=== PATIENT | female | born 1950 | race Caucasian/White ===

== ENCOUNTER → 2016-06-17 | Outpatient (CLI) | payer OTHER ==
[~2016-06-17] MED LIST: ALBUTEROL SULFATE 0.083% NEB 2.5 MG/3 ML AMPUL NEB ONE
--- NOTE | 2016-06-19 09:38 | PULMONARY FUNCTION TEST ---
DATE OF SERVICE: 06/17/2016 THE VITAL CAPACITY IS NORMAL. THE EXPIRATORY FLOW RATES ARE SLIGHTLY DECREASED. THE FEV1/VC IS 54%, PREDICTED: 83% LUNG VOLUMES BY NITROGEN WASH OUT METHOD SHOW: TLC IS 117% OF PREDICTED FRC IS 121% OF PREDICTED RV IS 121% OF PREDICTED THE DLCO IS 10.8, 62% OF PREDICTED. THE RV/TLC RATIO IS 40% PREDICTED 39% AFTER BRONCHODILATOR, EXPIRATORY FLOW RATES SHOW NO SIGNIFICANT CHANGE. IMPRESSION: GOOD PATIENT EFFORT. SLIGHT OBSTRUCTIVE DEFECT. LUNG VOLUMES ARE SLIGHTLY INCREASED. DIFFUSING CAPACITY IS MODERATELY DECREASED. CC: TONIE ROJAS MD > KENNEDI
== END ==
LOC: RT 08:23
PROVIDERS: ATTEND Internal Medicine Pulmonary Disease
DX: J44.1 Chronic obstructive pulmonary disease with (acute) exacerbation (principal)
CPT/HCPCS: 94060; 94727; 94729

== ENCOUNTER → 2016-09-11 | Outpatient (CLI) | payer MEDICARE ==
--- NOTE | 2016-09-11 09:22 | WOMENS IMAGING REPORT ---
EXAM DESCRIPTION: BILAT SCREENING MAMMO W/CAD COMPLETED DATE/TIME: 09/11/2016 8:51 am REASON FOR STUDY: ROUTINE SCREENING; Z12.31 Z12.31 ENCNTR SCREEN MAMMOGRAM FOR MALIGNANT NEOPLASM O F AUSTEN COMPARISON: None. TECHNIQUE: Standard craniocaudal and mediolateral oblique views of each breast recorded using Innov[employer] l acquisition. LIMITATIONS: None. FINDINGS: Findings present which are benign by mammographic criteria. No suspicious masses, calcifi cations or architectural distortion. Pertinent benign findings: Postsurgical changes from bilateral breast reduction. Multiple bilateral skin calcifications and scattered benign-appearing breast parenchymal calcifications. Read with the assistance of CAD. .[facility] - R2 Cenova Version 1.3 .[facility] Imaging - R2 Cenova Version 1.3 .[facility] - R2 Cenova Version 2.4 .[facility] [place] - R2 Cenova Version 2.4 .[facility] - R2 Boiler Maker Version 9.2 Benign mammographic findings may include one or more of the following: Smooth masses, popcorn/rim/co arse calcifications, asymmetries, post-procedure changes, and lesions with long-standing stability. IMPRESSION: BENIGN MAMMOGRAPHIC FINDINGS. BIRADS 2 BREAST DENSITY: c. The breasts are heterogeneously dense, which may obscure small masses. BIRAD: 2 BENIGN FINDING(S) RECOMMENDATION: ROUTINE SCREENING Please consider bilateral screening tomosynthesis given heterogeneously dense tissue bilaterally COMMENT: The patient has been notified of the results by letter per SA requirements. Additional no tification policies are in place for contacting patient with suspicious or incomplete findings. Quality ID #[id number]: The [employer] recommends an annual screening mammogram for women aged 40 years or over. This facility utilizes a reminder system to ensure that all patients receive reminder letters, and/or direct phone calls for appointments. This includes reminders for routine scr eening mammograms, diagnostic mammograms, or other Breast Imaging Interventions when appropriate. Th is patient will be placed in the appropriate reminder system. The [employer] (ACR) has developed recommendations for screening MRI of the breast s in certain patient populations, to be used in conjunction with mammography. Breast MRI surveillanc e may be appropriate for women with more than 20% lifetime risk of developing breast cancer as deter mined by genetic testing, significant family history of the disease, or history of mantle radiation f or Hodgkins Disease. ACR Practice Guidelines 2008. TECHNICAL DOCUMENTATION: FINDING NUMBER: (1) ASSESSMENT: (1) JOB ID: [id number] [employer]- All Rights Reserved
== END ==
LOC: WI 08:32
PROVIDERS: ATTEND Family Medicine
DX: Z12.31 Encounter for screening mammogram for malignant neoplasm of breast (principal)
CPT/HCPCS: 77067; G0202

== ENCOUNTER → 2017-08-03 | Outpatient (CLI) | payer MEDICARE ==
--- NOTE | 2017-08-03 14:16 | RADIOLOGY REPORT (SQ) ---
EXAM DESCRIPTION: CT LUNG CANCER SCREENING COMPLETED DATE/TIME: 08/03/2017 10:45 am REASON FOR STUDY: PERSONAL HX OF NICOTINE DEPENDENCE (Z87.891) Z87.891 PERSONAL HISTORY OF NICOTINE DEPENDENCE Has the patient had a Chest CT scan within the past year? Was the patient offered tobacco cessation counseling? Was the patient engaged in shared decision making for this test? Does the patient have signs or symptoms of Lung Cancer? Is the patient a smoker? How many packs per year? How many years since quitting smoking? Patients age: COMPARISON: None. TECHNIQUE: Low Dose CT scan performed of the chest without intravenous contrast for purposes of scre ening for lung cancer. Images reviewed with lung, soft tissue and bone windows. Reconstructed coron al and sagittal MPR images reviewed. All images stored on PACS. All CT scanners at this facility use dose modulation, iterative reconstruction, and/or weight based d osing when appropriate to reduce radiation dose to as low as reasonably achievable (ALARA). [facility]: Dose Right [facility]: CareDose [facility]: Dose Right [facility]: Teradose 4D [facility]: Smart Mismi RADIATION DOSE: CT Rad equipment meets quality standard of care and radiation dose reduction techniq ues were employed. CTDIvol: 2.0 mGy. DLP: 77 mGy-cm. mGy. . LIMITATIONS: No technical limitations. FINDINGS: LUNG NODULES: Description: Ground-glass nodule in the middle lobe. Size: 10 mm REMAINING LUNGS AND PLEURA: No pleural effusions or calcifications. No pneumothorax. Bandlike s carring in the left lower lobe and middle lobe. HILAR AND MEDIASTINAL STRUCTURES: No identified masses. No abnormal nodes. HEART AND VASCULAR STRUCTURES: No aortic aneurysm. No pericardial effusion. No cardiac devices. CORONARY ARTERY CALCIFICATIONS: Mild to moderate calcifications. UPPER ABDOMEN, THYROID, BONES, OTHER SOFT TISSUES: No significant findings. IMPRESSION: PROBABLY BENIGN FINDINGS IN THE LUNGS. OTHER FINDINGS ABOVE. LUNGRADS: LUNGRADS: 3, PROBABLY BENIGN. PROBABLY BENIGN FINDING(S)- SHORT TERM FOLLOW UP SUGGESTED; INCLUDES NODULES WITH A LOW LIKELIHOOD OF BECOMING A CLINICALLY ACTIVE CANCER. MODIFIER: NONE. RECOMMENDATION: Followup LDCT in 6 months. COMMENT: CRITERIA: Solid nodule(s): ? 6 mm to < 8 mm at baseline OR new 4 mm to < 6 mm. Part solid nodule(s): ? 6 mm total diameter with solid component < 6 mm OR new < 6 mm total diameter . Non solid nodule(s) (GGN): ? [address] or new. TECHNICAL DOCUMENTATION: JOB ID: [id number] Quality ID # [id number]: Final reports with documentation of one or more dose reduction techniques (e.g., Au tomated exposure control, adjustment of the mA and/or kV according to patient size, use of iterative reconstruction technique) 2010 [facility] Reading location - IP/workstation name: [email or web address] [id number]
== END ==
LOC: RAD 10:12
PROVIDERS: ATTEND Internal Medicine Pulmonary Disease
DX: R91.1 Solitary pulmonary nodule (principal); J98.4 Other disorders of lung; Z87.891 Personal history of nicotine dependence
CPT/HCPCS: G0297

== ENCOUNTER → 2017-11-26 | Outpatient (CLI) | payer MEDICARE ==
--- NOTE | 2017-11-26 13:25 | RADIOLOGY REPORT (SQ) ---
EXAM DESCRIPTION: CT CHEST WITHOUT COMPLETED DATE/TIME: 11/26/2017 12:56 pm REASON FOR STUDY: SOLITARY PULMONARY NODULE R91.1 SOLITARY PULMONARY NODULE COMPARISON: 08/03/2017 TECHNIQUE: CT scan performed of the chest without intravenous contrast. Images reviewed with lung, soft tissue and bone windows. Reconstructed coronal and sagittal MPR images reviewed. All images st ored on PACS. All CT scanners at this facility use dose modulation, iterative reconstruction, and/or weight based d osing when appropriate to reduce radiation dose to as low as reasonably achievable (ALARA). [facility]: Dose Right [facility]: CareDose [facility]: Dose Right [facility]: Teradose 4D [facility]: Smart Plex RADIATION DOSE: CT Rad equipment meets quality standard of care and radiation dose reduction techniq ues were employed. CTDIvol: 4.8 mGy. DLP: 181 mGy-cm. mGy. LIMITATIONS: No technical limitations. FINDINGS: LUNGS AND PLEURA: There is a new 7.1 mm slightly spiculated nodule in the right lung apex. There is subsegmental atelectasis in the right upper lobe peripherally new from prior study. Mild emphysematous changes are again noted. There is a stable 9.5 mm sub solid nodule just anterior to th e major fissure in the right upper lobe. HILAR AND MEDIASTINAL STRUCTURES: No identified masses or abnormal nodes. No obvious aneurysm. HEART AND VASCULAR STRUCTURES: No aneurysm. No pericardial effusion. UPPER ABDOMEN: No significant findings. Limited exam. THYROID AND OTHER SOFT TISSUES: No masses. No adenopathy. BONES: No significant finding. HARDWARE: None in the chest. OTHER: No other significant findings. IMPRESSION: 1. Stable 9.4 mm sub solid nodule in the right upper lobe adjacent to the major fissure. 2. New 7.1 mm mildly spiculated nodule in the right lung apex. This will need follow up. 3. Subsegmental atelectasis in the periphery of the right upper lobe new from prior study. COMMENT: Fleischner Criteria for Ground Glass Nodules: >6mm ground glass single nodule: CT 6-12 mo, then CT every 2 yr until 5 yr TECHNICAL DOCUMENTATION: JOB ID: [id number] Quality ID # [id number]: Final reports with documentation of one or more dose reduction techniques (e.g., Au tomated exposure control, adjustment of the mA and/or kV according to patient size, use of iterative reconstruction technique) 2010 [employer]- All Rights Reserved Reading location - IP/workstation name: [email or web address]
== END ==
LOC: RAD 12:58
PROVIDERS: ATTEND Internal Medicine Pulmonary Disease
DX: R91.1 Solitary pulmonary nodule (principal)
CPT/HCPCS: 71250

== ENCOUNTER → 2018-03-30 | Outpatient (CLI) | payer MEDICARE ==
--- NOTE | 2018-03-30 09:31 | RADIOLOGY REPORT (SQ) ---
EXAM DESCRIPTION: CT CHEST WITHOUT COMPLETED DATE/TIME: 03/30/2018 9:11 am REASON FOR STUDY: SOLITARY PULMONARY NODULE R91.1 SOLITARY PULMONARY NODULE COMPARISON: 11/26/2017 TECHNIQUE: CT scan performed of the chest without intravenous contrast. Images reviewed with lung, soft tissue and bone windows. Reconstructed coronal and sagittal MPR images reviewed. All images st ored on PACS. All CT scanners at this facility use dose modulation, iterative reconstruction, and/or weight based d osing when appropriate to reduce radiation dose to as low as reasonably achievable (ALARA). [facility]: Dose Right [facility]: CareDose [facility]: Dose Right [facility]: Teradose 4D [facility]: Yarraa RADIATION DOSE: CT Rad equipment meets quality standard of care and radiation dose reduction techniq ues were employed. CTDIvol: 5.1 mGy. DLP: 195 mGy-cm. mGy. LIMITATIONS: No technical limitations. FINDINGS: LUNGS AND PLEURA: Right upper lobe spiculated nodule stable at 7 mm. Lateral segment midd le lobe ground-glass nodule stable at 9 mm. Stable bandlike scarring right upper lobe abutting the m ajor fissure. Mild centrilobular emphysema upper lobes. No effusions. HILAR AND MEDIASTINAL STRUCTURES: No identified masses or abnormal nodes. No obvious aneurysm. HEART AND VASCULAR STRUCTURES: No aneurysm. No pericardial effusion. UPPER ABDOMEN: No significant findings. Limited exam. THYROID AND OTHER SOFT TISSUES: No masses. No adenopathy. BONES: No significant finding. HARDWARE: None in the chest. OTHER: No other significant findings. IMPRESSION: COPD. Stable pulmonary nodules. TECHNICAL DOCUMENTATION: JOB ID: [id number] Quality ID # [id number]: Final reports with documentation of one or more dose reduction techniques (e.g., Au tomated exposure control, adjustment of the mA and/or kV according to patient size, use of iterative reconstruction technique) 2010 [employer]- All Rights Reserved Reading location - IP/workstation name: [email or web address]
== END ==
LOC: RAD 08:47
PROVIDERS: ATTEND Internal Medicine Pulmonary Disease
DX: R91.1 Solitary pulmonary nodule (principal)
CPT/HCPCS: 71250

== ENCOUNTER 2020-03-03 17:33 | Emergency (ER) | payer MEDICARE ==
--- NOTE | 2020-03-03 17:37 | ER Document Report ---
ED Medical Screen (RME) - General Stated Complaint: LACERATION Time Seen by Provider: 03/03/20 17:36 Primary Care Provider: TONIE ROJAS MD [Primary Care Provider] - Follow up as needed Notes: HPI; 69-year-old female presents to the emergency room after avulsing the tip of her left ring finger with a knife just prior to arrival. Tetanus is up-to-date. Patient is right-handed. Bleeding is persistent. PE: Alert and oriented x3. Left ring finger is actively bleeding with a very large avulsion noted. Unable to fully assess in triage. Charge nurse notified. Patient taken directly to a room in the main ER. I have greeted and performed a rapid initial assessment of this patient. A comprehensive ED assessment and evaluation of the patient, analysis of test results and completion of the medical decision making process will be conducted by additional ED providers. I have specifically instructed the patient or family members with the patient to immediately return to any nursing staff should anything change in the patient's condition or with their chief complaint. TRAVEL OUTSIDE OF THE [place] IN LAST 30 DAYS: No - Related Data Allergies/Adverse Reactions: codeine [Codeine] Allergy (Verified 03/19/14 09:47) Past Medical History Pulmonary Medical History: Reports: Hx COPD Endocrine Medical History: Reports: Hx Hypothyroidism Past Surgical History: Reports: Hx Appendectomy, Hx Breast Surgery - breast reduction, Hx Hysterectomy - Immunizations Hx Diphtheria, Pertussis, Tetanus Vaccination: Yes Doctor's Discharge - Discharge Referrals: TONIE ROJAS MD [Primary Care Provider] - Follow up as needed
[2020-03-03 17:55] VITALS: BP 135/51
[2020-03-03] MEDS ORDERED: ACETAMINOPHEN 325 MG TABLET PO ONE (17:58)
[2020-03-03] MEDS ORDERED: BUPIVACAINE HCL 0.5 % INJ/PF 30 ML SDV INJ ONE (18:05)
[2020-03-03] MEDS ORDERED: CEPHALEXIN 500 MG CAPSULE PO ONE (18:06)
--- NOTE | 2020-03-03 18:07 | ER Document Report ---
ED Wound - General Chief Complaint: Laceration Stated Complaint: LACERATION Time Seen by Provider: 03/03/20 17:36 Primary Care Provider: TONIE ROJAS MD [Primary Care Provider] - Follow up as needed Notes: CHIEF COMPLAINT: Avulsion of left fourth fingertip HPI: 69-year-old female who is up-to-date on her tetanus vaccination presenting for avulsion of the tip of the left fourth finger. Patient was cutting sweet potatoes with a sharp knife when she slipped and cut off the tip of the finger. Patient complains of pain and throbbing to the distal tip of the finger. Denies other complaints ROS: See HPI - all other systems were reviewed and are otherwise negative Constitutional: no fever Integumentary: + rash Allergy: no hives Musculoskeletal: + extremity pain or swelling MEDICATIONS: I agree with the patient medications as charted by the RN. ALLERGIES: I agree with the allergies as charted by the RN. PAST MEDICAL HISTORY/PAST SURGICAL HISTORY: Reviewed and agree as charted by RN. SOCIAL HISTORY: Reviewed and agree as charted by RN. FAMILY HISTORY: No significant familial comorbid conditions directly related to patient complaint EXAM: Reviewed vital signs as charted by RN. CONSTITUTIONAL: Alert and oriented and responds appropriately to questions. Well-appearing; well-nourished HEAD: Normocephalic; atraumatic EYES: Conjunctivae clear, sclerae non-icteric ENT: normal nose; no rhinorrhea; moist mucous membranes NECK: Supple without meningismus CARD: symmetric distal pulses RESP: Normal chest excursion without splinting or tachypnea ABD/GI: non-distended. BACK: The back appears normal EXT: Normal ROM in all joints; no cyanosis, no effusions, no edema SKIN: Normal color for age and race; warm; dry; good turgor; there is avulsion of the tip of the left fourth finger. NEURO: Moves all extremities equally; Motor and sensory function intact PSYCH: The patient's mood and manner are appropriate. Grooming and personal hygiene are appropriate. MDM: 69-year-old female with avulsion of the tip of the left fourth finger. The avulsion is complete and involves the distal aspect of the tuft. X-ray did not show definitive fracture. Will digitally block for comfort, plan to further explore the tip of the finger to evaluate for bone exposure after anesthetic in place. TRAVEL OUTSIDE OF THE [place] IN LAST 30 DAYS: No - Related Data Allergies/Adverse Reactions: codeine [Codeine] Allergy (Verified 03/19/14 09:47) Past Medical History - Social History Smoking Status: Current Every Day Smoker Frequency of alcohol use: None Drug Abuse: None Family History: CAD, Malignancy Patient has homicidal ideation: No Pulmonary Medical History: Reports: Hx COPD Endocrine Medical History: Reports: Hx Hypothyroidism Past Surgical History: Reports: Hx Appendectomy, Hx Breast Surgery - breast reduction, Hx Hysterectomy - Immunizations Hx Diphtheria, Pertussis, Tetanus Vaccination: Yes Physical Exam - Vital signs Vitals: Temp Pulse Resp BP Pulse Ox 98.1 F 77 16 135/51 H 96 03/03/20 17:54 03/03/20 17:54 03/03/20 17:54 03/03/20 17:54 03/03/20 17:54 Course - Re-evaluation Re-evalutation: 03/03/20 18:29 On examination of the wound after digital block I am unable to definitively palpate bone exposure with a sterile Q-tip. We will dress the wound, antibiotics, orthopedic hand surgery referral for wound check. Patient is declining pain medications other than Tylenol - Vital Signs Vital signs: Temp Pulse Resp BP Pulse Ox 98.1 F 77 16 135/51 H 96 03/03/20 17:54 03/03/20 17:54 03/03/20 17:54 03/03/20 17:54 03/03/20 17:54 Procedures - Laceration/Wound Repair Left Distal Finger 4th digit Time completed: 18:26 Wound length (cm): 1 Wound's Depth, Shape: Irregular, Other - Avulsion of distal tip of finger left fourth Laceration pre-procedure: Sterile PPE donned, Shur-Clens applied, Other - Saline Anesthetic type: 0.5% Bupivacaine - Digital block of the left fourth finger, incremental injection after aspiration for blood. Good anesthesia achieved Volume Anesthetic (mLs): 2 Irrigated w/ Saline (mLs): 250 Post-procedure wound care: Sterile dressing applied Post-procedure NV exam normal: Yes Complications: No - Avulsion of the tip of the finger. There was no closure of the wound attem Discharge - Discharge Clinical Impression: Avulsion, finger tip Qualifiers: Encounter type: initial encounter Qualified Code(s): S61.209A - Unspecified open wound of unspecified finger without damage to nail, initial encounter Condition: Stable Disposition: HOME, SELF-CARE Additional Instructions: Leave the dressing on for 24 hours you may then remove the dressing and gently clean the area with soap and water applying antibiotic ointment over the distal tip and a dressing until healed. Take the antibiotics as prescribed. It is important that you follow-up closely with the orthopedic surgeon for reevaluation of the wound area as discussed Prescriptions: Cephalexin Monohydrate [Keflex 500 mg Capsule] 500 mg PO Q6H 7 Days #28 capsule Referrals: TONIE ROJAS MD [Primary Care Provider] - Follow up as needed DANIELA GRANADOS DO [ACTIVE STAFF] - Follow up as needed
--- NOTE | 2020-03-03 18:12 | RADIOLOGY REPORT (SQ) ---
EXAM DESCRIPTION: FINGER LEFT IMAGES COMPLETED DATE/TIME: 03/03/2020 5:58 pm REASON FOR STUDY: left ring finger COMPARISON: None. NUMBER OF VIEWS: Three views. TECHNIQUE: AP, lateral, and oblique images acquired of the left fourth finger. LIMITATIONS: None. FINDINGS: MINERALIZATION: Normal. BONES: No acute fracture or dislocation. No worrisome bone lesions. SOFT TISSUES: Large soft tissue defect at the tuft of the left 4th finger. OTHER: No other significant finding. IMPRESSION: Large soft tissue defect at the tuft of the left 4th finger which closely approximates t he tip of the distal phalanx. Correlate for bone exposure. TECHNICAL DOCUMENTATION: JOB ID: [id number] 2010 [employer]- All Rights Reserved Reading location - IP/workstation name: [email or web address]
== END 2020-03-03 19:05 | disposition home or self-care (01) ==
LOC: ER 17:33
PROC: 0HQGXZZ Repair Left Hand Skin, External Approach (ICD-10-PCS; principal; 2020-03-03)
DX: S61.215A Laceration without foreign body of left ring finger without damage to nail, initial encounter (principal); R21 Rash and other nonspecific skin eruption; W26.0XXA Contact with knife, initial encounter; Y93.G1 Activity, food preparation and clean up; F17.200 Nicotine dependence, unspecified, uncomplicated; J44.9 Chronic obstructive pulmonary disease, unspecified
CPT/HCPCS: 99283; 73140; 12001; A9270 ×2; J3490